=== PATIENT | female | born 1980 | race African-American/Black ===

== ENCOUNTER 2018-02-13 15:12 | Emergency (ER) | payer OTHER ==
[~2018-02-13] VITALS: Ht 172.7 cm; Wt 85.7 kg
--- NOTE | ~2018-02-13 | EKG ---
[place] [address] [address] 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1980 Requested By: Leonidas Villalpando Order Number: [id number] MD: Neal Peralta Measurements Intervals [place] Rate: 86 P: 160 MT: 125 QRS: -21 QRSD: 89 T: 17 QT: 412 QTc: 493 Interpretive Statements Incomplete EKG Sinus or ectopic atrial rhythm Inferior infarct, old Lead(s) II were not used for morphology analysis Compared to ECG 09/21/2016 14:00:04 Ectopic atrial rhythm now present Electronically Signed On 02-14-2018 7:45:10 CDT by Neal Peralta [email or web address] <ELECTRONICALLY SIGNED> By: Neal Peralta MD, [facility] 02/14/18 0745 1517 1517 Neal Peralta MD, [facility] /EPI
[~2018-02-13 15:12] MED LIST: AZITHROMYCIN 2250 MG PO; KEFLEX500 MG PO; NAPROSYN500 MG PO; NORCO 5-325 TA1 EACH PO; PHENAZOPYRIDIN200 M2 PO; PREDNISONE 20 M20 MG PO; TORADOL 10 MG T10 MG PO; TRAMADOL 50 MG50 MG PO; ZYRTEC10 M5 PO
[2018-02-13 15:42] LABS: ABSOLUTE NEUTROPHILS 6.2 thou/uL (1.4-8.2); BASOPHILS 0.6 % (0.0-2.0); EOSINOPHILS 2.8 % (0.0-3.0); HEMATOCRIT 42.9 % (37.0-47.0); HEMOGLOBIN 14.4 gm/dL (12.0-15.0); LYMPHOCYTES 31.5 % (24.0-44.0); MCH 34.1 pg (26.0-34.0); MCHC 33.7 g/dL (28.0-37.0); MCV 101.2 fL (80.0-100.0); MONOCYTES 7.8 % (1.0-8.0); PLATELET COUNT 177 thou/uL (150-400); POLYS 57.3 % (36.0-66.0); RBC 4.24 mil/uL (4.20-5.00); RDW 13.4 % (10.5-14.5); WBC 10.9 thou/uL (4.0-11.0)
[2018-02-13 15:51] LABS: ANION GAP 8 mmol/L (7-16); BUN 14 mg/dL (7-18); CALCIUM 9.4 mg/dL (8.5-10.1); CHLORIDE 104 mmol/L (98-107); CO2 25 mmol/L (21-32); CREATININE 0.9 mg/dL (0.6-1.0); GLUCOSE 96 mg/dL (74-106); POTASSIUM 3.9 mmol/L (3.5-5.1); SODIUM 137 mmol/L (136-145)
[2018-02-13 16:00] LABS: ALBUMIN 3.8 g/dL (3.4-5.0); SGOT 19 U/L (15-37); SGPT 22 U/L (30-65); TOTAL BILIRUBIN 0.3 mg/dL (<0.1-1.0); TOTAL PROTEIN 7.2 g/dL (6.4-8.2); TROPONIN-I < 0.04 ng/mL (<0.06)
[2018-02-13 16:02] LABS: URINE BILIRUBIN NEGATIVE (Negative); URINE BLOOD NEGATIVE (Negative); URINE CLARITY CLEAR; URINE COLOR YELLOW; URINE GLUCOSE-RANDOM* NEGATIVE (Negative); URINE KETONES NEGATIVE (Negative); URINE LEUKOCYTES NEGATIVE (Negative); URINE NITRITE NEGATIVE (Negative); URINE PROTEIN (DIPSTICK) NEGATIVE (Negative); URINE UROBILINOGEN 0.2 E.U./dl (0.2-1.0)
[2018-02-13] MEDS ORDERED: IBUPROFEN 600600 M1 PO (16:45)
[2018-02-13] MEDS ORDERED: FLEXERIL PO (16:45)
[2018-08-20] MEDS ORDERED: AUGMENTIN 500-1 EACH PO (04:19)
[2018-08-20] MEDS ORDERED: TRIAMCINOLONE A15 G3 TOP (04:19)
[2018-08-20] MEDS ORDERED: DIFLUCAN150 M1 PO (04:28)
== END 2018-02-13 17:17 | disposition home or self-care (01) ==
LOC: ER 15:12
PROVIDERS: Nurse Practitioner
DX: R07.89 Other chest pain (principal); F31.9 Bipolar disorder, unspecified; F17.210 Nicotine dependence, cigarettes, uncomplicated; Z91.041 Radiographic dye allergy status

== ENCOUNTER 2018-03-09 14:22 | Emergency (ER) | payer OTHER ==
[~2018-03-09] VITALS: Ht 172.7 cm; Wt 81.7 kg
[~2018-03-09 14:22] MED LIST changes: +FLEXERIL PO; +IBUPROFEN 600600 M1 PO
[2018-03-09 14:55] LABS: URINE BILIRUBIN NEGATIVE (Negative); URINE BLOOD NEGATIVE (Negative); URINE CLARITY CLEAR; URINE COLOR YELLOW; URINE GLUCOSE-RANDOM* NEGATIVE (Negative); URINE KETONES NEGATIVE (Negative); URINE LEUKOCYTES NEGATIVE (Negative); URINE NITRITE NEGATIVE (Negative); URINE PROTEIN (DIPSTICK) NEGATIVE (Negative); URINE SPECIFIC GRAVITY <= 1.005 (1.005-1.035); URINE UROBILINOGEN 0.2 E.U./dl (0.2-1.0)
[2018-03-09 16:00] LABS: ABSOLUTE NEUTROPHILS 7.2 thou/uL (1.4-8.2); BASOPHILS 0.8 % (0.0-2.0); EOSINOPHILS 1.6 % (0.0-3.0); HEMATOCRIT 42.5 % (37.0-47.0); HEMOGLOBIN 14.3 gm/dL (12.0-15.0); MCH 34.1 pg (26.0-34.0); MCHC 33.7 g/dL (28.0-37.0); MCV 101.1 fL (80.0-100.0); MONOCYTES 8.1 % (1.0-8.0); PLATELET COUNT 185 thou/uL (150-400); POLYS 65.5 % (36.0-66.0); RDW 13.5 % (10.5-14.5)
[2018-03-09 16:09] LABS: CALCIUM 9.4 mg/dL (8.5-10.1); CREATININE 0.9 mg/dL (0.6-1.0); POTASSIUM 3.9 mmol/L (3.5-5.1)
[2018-03-09 16:15] LABS: ALBUMIN 3.8 g/dL (3.4-5.0); TOTAL BILIRUBIN 0.3 mg/dL (<0.1-1.0); TOTAL PROTEIN 7.2 g/dL (6.4-8.2)
[2018-03-09 16:19] VITALS: BP 113/69
[2018-03-09] MEDS ORDERED: NAPROSYN500 MG PO (17:29)
[2018-03-10 14:10] LABS: NEISSERIA GONORRHEA-PCR Negative (Negative)
== END 2018-03-09 17:44 | disposition home or self-care (01) ==
LOC: ER 14:22
PROVIDERS: Physician Assistant
DX: R10.31 Right lower quadrant pain (principal); F31.9 Bipolar disorder, unspecified; F17.210 Nicotine dependence, cigarettes, uncomplicated; Z91.041 Radiographic dye allergy status; M54.9 Dorsalgia, unspecified

== ENCOUNTER 2018-06-02 15:27 | Emergency (ER) | payer OTHER ==
[~2018-06-02] VITALS: Ht 172.7 cm; Wt 86.2 kg
[2018-06-02 15:47] LABS: URINE BILIRUBIN NEGATIVE (Negative); URINE BLOOD NEGATIVE (Negative); URINE CLARITY CLEAR; URINE COLOR YELLOW; URINE GLUCOSE-RANDOM* NEGATIVE (Negative); URINE KETONES NEGATIVE (Negative); URINE LEUKOCYTES NEGATIVE (Negative); URINE NITRITE NEGATIVE (Negative); URINE PROTEIN (DIPSTICK) NEGATIVE (Negative); URINE SPECIFIC GRAVITY >= 1.030 (1.005-1.035); URINE UROBILINOGEN 0.2 E.U./dl (0.2-1.0)
[2018-06-02 17:29] VITALS: BP 138/64
[2018-06-03 14:12] LABS: NEISSERIA GONORRHEA-PCR Negative (Negative)
== END 2018-06-02 17:30 | disposition home or self-care (01) ==
LOC: ER 15:27
PROVIDERS: Emergency Medicine; Physician Assistant
DX: N89.8 Other specified noninflammatory disorders of vagina (principal); N64.4 Mastodynia; F41.9 Anxiety disorder, unspecified; F31.9 Bipolar disorder, unspecified; F17.210 Nicotine dependence, cigarettes, uncomplicated; Z91.041 Radiographic dye allergy status

== ENCOUNTER 2018-06-30 04:38 | Emergency (ER) | payer OTHER ==
[~2018-06-30] VITALS: Ht 172.7 cm; Wt 86.2 kg
[2018-06-30 04:39] VITALS: BP 127/79
[2018-06-30] MEDS ORDERED: AMOXICILLIN500 M1 PO (05:21)
[2018-06-30] MEDS ORDERED: DIFLUCAN150 MG PO (05:23)
== END 2018-06-30 05:40 | disposition home or self-care (01) ==
LOC: ER 04:38
DX: J02.9 Acute pharyngitis, unspecified (principal); F17.210 Nicotine dependence, cigarettes, uncomplicated; F41.9 Anxiety disorder, unspecified; F31.9 Bipolar disorder, unspecified; Z91.041 Radiographic dye allergy status

== ENCOUNTER 2018-07-03 12:28 | Emergency (ER) | payer OTHER ==
[~2018-07-03] VITALS: Ht 172.7 cm; Wt 86.2 kg
--- NOTE | ~2018-07-03 | EKG ---
[address] [address] ELECTROCARDIOGRAM REPORT Name: ROSIE ALLEN [id number] Admission: 07/03/18 Attend Phys: Discharge: 07/03/18 Date of : 84 Report #: [id number] THIS REPORT FOR: //name// [facility] ED Test Date: 2018-07-03 Test Time: 13:14:49 Pat Name: ROSIE ALLEN Department: Room: Gender: F Patient Service Coordinator: nicholas : 1980 Requested By: Izaiah Weir Order Number: [id number] MD: Neal Peralta Measurements Intervals [place] Rate: 72 P: 58 NM: 129 QRS: -4 QRSD: 92 T: 36 QT: 429 QTc: 470 Interpretive Statements Sinus rhythm Normal tracing Compared to ECG 02/13/2018 15:17:48 Limb lead reversal no longer present Electronically Signed On 07-03-2018 15:36:15 CDT by Neal Peralta [email or web address] <ELECTRONICALLY SIGNED> By: Neal Peralta MD, [facility] 07/03/18 1536 D: [id number] Neal Peralta MD, [facility] /EPI
[~2018-07-03 12:28] MED LIST changes: +AMOXICILLIN500 M1 PO; +DIFLUCAN150 MG PO
[2018-07-03 12:33] VITALS: BP 143/73
[2018-07-03] MEDS ORDERED: XANAX 1 MG TABLE1 MG PO (13:07)
== END 2018-07-03 13:44 | disposition home or self-care (01) ==
LOC: ER 12:28
DX: F17.213 Nicotine dependence, cigarettes, with withdrawal (principal); R51 Headache; R07.89 Other chest pain; F41.9 Anxiety disorder, unspecified; F31.9 Bipolar disorder, unspecified; Z91.041 Radiographic dye allergy status

== ENCOUNTER 2018-08-10 13:12 | Emergency (ER) | payer OTHER ==
[~2018-08-10] VITALS: Ht 172.7 cm; Wt 86.2 kg
[~2018-08-10 13:12] MED LIST changes: +XANAX 1 MG TABLE1 MG PO
[2018-08-10 13:14] VITALS: BP 122/76
[2018-08-10] MEDS ORDERED: CLARITIN10 MG PO (13:39)
[2018-08-10] MEDS ORDERED: ACCUNEB SO1.25 MG/1 INH (13:39)
[2018-08-10 14:09] LABS: URINE BILIRUBIN NEGATIVE (Negative); URINE BLOOD NEGATIVE (Negative); URINE CLARITY CLEAR; URINE COLOR YELLOW; URINE GLUCOSE-RANDOM* NEGATIVE (Negative); URINE KETONES NEGATIVE (Negative); URINE LEUKOCYTES-REFLEX NEGATIVE (Negative); URINE NITRITE-REFLEX NEGATIVE (Negative); URINE PROTEIN (DIPSTICK) NEGATIVE (Negative); URINE SPECIFIC GRAVITY <= 1.005 (1.005-1.035); URINE UROBILINOGEN 0.2 E.U./dl (0.2-1.0)
[2018-08-10] MEDS ORDERED: VENTOLIN HFA 1818 GM INH (14:13)
[2018-08-10] MEDS ORDERED: TESSALON PERLE100 MG PO (14:13)
[2018-08-10] MEDS ORDERED: PREDNISONE 20 M20 MG PO (14:13)
== END 2018-08-10 14:29 | disposition home or self-care (01) ==
LOC: ER 13:12
PROVIDERS: Physician Assistant
DX: J40 Bronchitis, not specified as acute or chronic (principal); F17.210 Nicotine dependence, cigarettes, uncomplicated; Z91.041 Radiographic dye allergy status

== ENCOUNTER 2018-12-07 10:32 | Emergency (ER) | payer OTHER ==
[~2018-12-07] VITALS: Ht 170.2 cm; Wt 86.2 kg
[~2018-12-07 10:32] MED LIST changes: +ACCUNEB SO1.25 MG/1 INH; +AUGMENTIN 500-1 EACH PO; +CLARITIN10 MG PO; +DIFLUCAN150 M1 PO; +TESSALON PERLE100 MG PO; +TRIAMCINOLONE A15 G3 TOP; +VENTOLIN HFA 1818 GM INH
[2018-12-07 10:52] LABS: URINE CLARITY CLEAR; URINE COLOR YELLOW
[2018-12-07 10:53] LABS: URINE BILIRUBIN NEGATIVE (Negative); URINE BLOOD NEGATIVE (Negative); URINE GLUCOSE-RANDOM* NEGATIVE (Negative); URINE KETONES NEGATIVE (Negative); URINE LEUKOCYTES-REFLEX NEGATIVE (Negative); URINE NITRITE-REFLEX NEGATIVE (Negative); URINE PROTEIN (DIPSTICK) NEGATIVE (Negative); URINE UROBILINOGEN 0.2 E.U./dl (0.2-1.0)
[2018-12-07 11:31] LABS: ABSOLUTE NEUTROPHILS 6.3 thou/uL (1.4-8.2); BASOPHILS 1.3 % (0.0-2.0); EOSINOPHILS 1.6 % (0.0-3.0); HEMATOCRIT 41.1 % (37.0-47.0); HEMOGLOBIN 14.1 gm/dL (12.0-15.0); LYMPHOCYTES 22.3 % (24.0-44.0); MCH 34.2 pg (26.0-34.0); MCHC 34.4 g/dL (28.0-37.0); MCV 99.5 fL (80.0-100.0); MONOCYTES 8.2 % (1.0-8.0); PLATELET COUNT 169 thou/uL (150-400); POLYS 66.6 % (36.0-66.0); RBC 4.13 mil/uL (4.20-5.00); RDW 13.3 % (10.5-14.5); WBC 9.5 thou/uL (4.0-11.0)
[2018-12-07 11:52] LABS: CALCIUM 9.2 mg/dL (8.5-10.1); CREATININE 0.9 mg/dL (0.6-1.0); POTASSIUM 4.1 mmol/L (3.5-5.1)
[2018-12-07 11:57] LABS: ALBUMIN 3.7 g/dL (3.4-5.0); TOTAL BILIRUBIN 0.8 mg/dL (<0.1-1.0)
[2018-12-07] MEDS ORDERED: NORFLEX100 MG PO (13:10)
[2018-12-07] MEDS ORDERED: NAPROSYN500 MG PO (13:10)
[2018-12-07 13:16] VITALS: BP 111/74
== END 2018-12-07 13:18 | disposition home or self-care (01) ==
LOC: ER 10:32
PROVIDERS: Physician Assistant
DX: E86.0 Dehydration (principal); M54.6 Pain in thoracic spine; F41.9 Anxiety disorder, unspecified; F31.9 Bipolar disorder, unspecified; F17.210 Nicotine dependence, cigarettes, uncomplicated; Z91.041 Radiographic dye allergy status